=== PATIENT | male | born 1950 | race Two or more races ===

== ENCOUNTER 2024-11-07 06:26 | Day surgery (SDC) | payer OTHER ==
[~2024-11-07] VITALS: Ht 154.9 cm; Wt 98.4 kg
[2024-11-07] VITALS (9 sets, daily range): BP systolic 85–124; BP diastolic 46–83; PULSE 64–98; RESP 11–20; TEMP 98.2; O2SAT 92–94
[~2024-11-07 06:26] MED LIST: LISI20TA56 PO; [UNRECOGNIZED DRUG - CODE] PO
[2024-11-07] MEDS: IODIXANOL 320MG/ML 100ML BTL IV ONE (07:37)
[2024-11-07] MEDS: ANGIOMAX 250 MG VIAL IV ONE (08:15)
[2024-11-07] MEDS: HEPARIN SODIUM (PORCINE) 5000 UNITS/ML 1ML VIAL ONE (08:16)
[2024-11-07] MEDS: SODIUM CHL 0.9% 0 ML ONE (08:16)
[2024-11-07] MEDS: fentaNYL CITRATE 100 MCG/2 ML VL ONE (08:16)
[2024-11-07] MEDS: VERAPAMIL 2.5MG/ML INJ 2ML VIAL IV ONE (08:16)
[2024-11-07] MEDS: MIDAZOLAM HCL 2MG/2ML 2ml VIAL (1mg/ml) ONE (08:16)
[2024-11-07] MEDS: LIDOCAINE 2%HCL (LOCAL ANESTH.) INJ 20ML MDV ONE (08:17)
--- NOTE | 2024-11-07 08:43 | DVHOP2 ---
Operative Report Operative Report CARDIAC DOCUMENTATION SPEC PROCEDURE REPORT [place], [place] Date of Service: 11/07/24 Tabber: Master Bray MD PROCEDURES PERFORMED: Coronary angiogram, left heart catheterization, conscious sedation administration and supervision, less than 15 minutes; fluoroscopy use and interpretation. PREOPERATIVE DIAGNOSES: Abnormal stress test with CCS class 3 angina, POSTOP DIAGNOSIS: microvascular disease, mild cad DESCRIPTION OF PROCEDURE: The patient or appropriate family signed informed consent understanding the risks, benefits and alternatives of the procedure, they wished to proceed. The patient was brought to the cardiac crime lab analyst [place] The patient was prepped in a sterile fashion. Sedation was used per cardiac cath protocol. I administered 2 mL of 2% lidocaine to the right wrist. With an antegrade front wall puncture. I cannulated the right radial artery and placed a 6-[place] Glidesheath slender. Next, an intra-arterial spasmolytic was administered. Next, a - 5[place] catheter an were used for coronary angiogram and LVEDP measurement and pressure pullback. At the completion of procedure, all guides and wires were removed, and there were no immediate complications. FINDINGS: RCA: Moderate NON DOMINant vessel off the right sinus of Valsalva, there is no severe flow limiting stenosis. mild diffuse plaquing LEFT MAIN: Moderate large size left main, it bifurcates into LAD and circumflex. no stenosis CIRCUMFLEX: large dominant caliber vessel coming off the left main with no flow limiting stenosis. LAD: LAD is a moderate caliber vessel coming of the left main. no sevee stenosis. there is sluggish flow suggestive of microvascular disease LVEDP of 4 mmhg CONCLUSIONS: 1. mild cad PLAN: Aggressive risk factor modification and medical management for the patient. pt to proceed to surgery with MASTER Low MD Nov 07, 2024 08:43
== END 2024-11-07 10:52 | disposition home or self-care (01) ==
LOC: CATH 06:26
PROVIDERS: ATTEND Internal Medicine
DX: I25.119 Atherosclerotic heart disease of native coronary artery with unspecified angina pectoris (principal)
CPT/HCPCS: 93458; C1769; C1894; J1644; J2250; J3010; J7030; Q9967; 99152